=== PATIENT | female | born 1950 | race Caucasian/White ===

== ENCOUNTER 2017-10-11 18:57 | Emergency (ER) | payer MEDICARE, OTHER ==
[2017-10-11] MEDS: CYCLOBENZAPRINE 10 MG TABLET. PO (20:45)
== END 2017-10-11 20:59 | disposition home or self-care (01) ==
LOC: ER 18:57
DX: T42.8X1A Poisoning by antiparkinsonism drugs and other central muscle-tone depressants, accidental (unintentional), initial encounter (principal); T42.6X1A Poisoning by other antiepileptic and sedative-hypnotic drugs, accidental (unintentional), initial encounter; T48.1X1A Poisoning by skeletal muscle relaxants [neuromuscular blocking agents], accidental (unintentional), initial encounter; K21.9 Gastro-esophageal reflux disease without esophagitis; R40.0 Somnolence; Z88.2 Allergy status to sulfonamides; Z88.5 Allergy status to narcotic agent; Y92.89 Other specified places as the place of occurrence of the external cause
CPT/HCPCS: 93005; 99284

== ENCOUNTER 2018-02-04 23:26 | Inpatient (IN) | payer MEDICARE, OTHER ==
[2018-02-05 01:28] LABS: ADD MAN DIFF? NO
[2018-02-05 01:30] LABS: BASO % 1 % (0-3); EOS # 0.4 x10^3/uL (0.0-0.7); EOS % 5 % (0-3); HEMATOCRIT 29.8 % (36.0-47.0); HEMOGLOBIN 9.7 g/dL (12.0-15.5); LYMPH # 0.8 x10^3/uL (1.0-4.8); LYMPH % 10 % (24-48); MEAN CORPUSCULAR HEMOGLOBIN 34 pg (25-35); MEAN CORPUSCULAR HGB CONC 33 g/dL (31-37); MEAN CORPUSCULAR VOLUME 104 fL (79-100); MONO % 13 % (0-9); NEUT # 5.7 x10^3uL (1.8-7.7); NEUT % 72 % (31-73); PLATELET COUNT 168 x10^3/uL (140-400); RED BLOOD COUNT 2.87 x10^6/uL (3.50-5.40); RED CELL DISTRIBUTION WIDTH 18.2 % (11.5-14.5); WHITE BLOOD COUNT 7.9 x10^3/uL (4.0-11.0)
[2018-02-05 01:40] LABS: ANION GAP 21 (6-14); BLOOD UREA NITROGEN 103 mg/dL (7-20); CALCIUM 7.5 mg/dL (8.5-10.1); CARBON DIOXIDE 18 mmol/L (21-32); CHLORIDE 99 mmol/L (98-107); CREATININE 8.2 mg/dL (0.6-1.0); GFR 4.9; GLUCOSE 239 mg/dL (70-99); POTASSIUM 5.2 mmol/L (3.5-5.1); SODIUM 138 mmol/L (136-145)
[2018-02-05 01:41] LABS: MAGNESIUM 2.7 mg/dL (1.8-2.4)
[2018-02-05 03:15] LABS: FECAL OB PT POSITIVE (NEG); NEG OBC FOB NEG; POS OBC FOB POS
[2018-02-05 03:38] LABS: PARTIAL THROMBOPLASTIN TIME 98 SEC (24-38); PROTHROMBIN TIME PATIENT 80.5 SEC (11.7-14.0)
[2018-02-05 03:42] LABS: INR 10.2 (0.8-1.1)
[2018-02-05] MEDS ORDERED: ACETAMINOPHEN 325 MG TABLET. PO (04:00)
[2018-02-05] MEDS ORDERED: ONDANSETRON PF 4 MG/2 ML VIAL. IV (04:00)
[2018-02-05] MEDS: PHYTONADIONE 10 MG/ML ORAL SOLUTION. PO (04:20)
[2018-02-05] MEDS: VANCOMYCIN 125 MG/2.5 ML ORAL SOLUTION. PO ×3 (14:17→21:00)
[2018-02-05] MEDS: PHYTONADIONE 10 MG/ML AMPUL. SQ (14:18)
[2018-02-05] MEDS ORDERED: HYDROcodone/APAP 10/325 1 TAB TABLET PO (15:15)
[2018-02-05] MEDS: CINACALCET HCL 30 MG TABLET PO (15:39)
[2018-02-05] MEDS: GABAPENTIN 100 MG CAPSULE. PO (15:39)
[2018-02-05] MEDS: SERTRALINE 50 MG TABLET. PO (15:39)
[2018-02-05] MEDS: MAG HYDROX/ALUMINUM HYD/SIMETH 30 ML ORAL.SUSP PO (16:14)
[2018-02-05] MEDS: PANTOPRAZOLE 40 MG TABLET.DR. PO (16:14)
[2018-02-05] MEDS: MIDODRINE 5 MG TABLET PO (17:05)
[2018-02-05] MEDS: CLOTRIMAZOLE 1% TOPICAL CREAM 15GM TUBE. TP (21:00)
[2018-02-06] MEDS: GABAPENTIN 100 MG CAPSULE. PO ×4 (01:33→21:02)
[2018-02-06] MEDS: ALPRAZolam 0.5 MG TABLET PO (01:33)
[2018-02-06] MEDS: rOPINIRole 1 MG TABLET. PO ×2 (01:33→21:02)
[2018-02-06] MEDS: MIDODRINE 5 MG TABLET PO ×3 (05:47→17:10)
[2018-02-06 06:06] LABS: ADD MAN DIFF? NO
[2018-02-06 06:12] LABS: BASO % 1 % (0-3); EOS # 0.1 x10^3/uL (0.0-0.7); EOS % 2 % (0-3); HEMATOCRIT 25.9 % (36.0-47.0); HEMOGLOBIN 8.6 g/dL (12.0-15.5); LYMPH # 0.7 x10^3/uL (1.0-4.8); LYMPH % 12 % (24-48); MEAN CORPUSCULAR HEMOGLOBIN 34 pg (25-35); MEAN CORPUSCULAR HGB CONC 33 g/dL (31-37); MEAN CORPUSCULAR VOLUME 103 fL (79-100); MONO # 0.8 x10^3/uL (0.0-1.1); MONO % 14 % (0-9); NEUT # 3.9 x10^3uL (1.8-7.7); NEUT % 70 % (31-73); PLATELET COUNT 138 x10^3/uL (140-400); RED BLOOD COUNT 2.51 x10^6/uL (3.50-5.40); RED CELL DISTRIBUTION WIDTH 17.1 % (11.5-14.5); WHITE BLOOD COUNT 5.5 x10^3/uL (4.0-11.0)
[2018-02-06 06:41] LABS: TROPONINI 0.127 ng/mL (0.000-0.055)
[2018-02-06 06:41] LABS: ALBUMIN 2.6 g/dL (3.4-5.0); ALBUMIN/GLOBULIN RATIO 0.8 (1.0-1.7); ALK PHOS 142 U/L (46-116); ALT (SGPT) 23 U/L (14-59); ANION GAP 22 (6-14); AST (SGOT) 23 U/L (15-37); BLOOD UREA NITROGEN 54 mg/dL (7-20); BUN/CREATININE RATIO 11 (6-20); CALCIUM 7.2 mg/dL (8.5-10.1); CARBON DIOXIDE 25 mmol/L (21-32); CHLORIDE 97 mmol/L (98-107); CREATININE 4.9 mg/dL (0.6-1.0); GFR 8.9; GLUCOSE 136 mg/dL (70-99); POTASSIUM 4.3 mmol/L (3.5-5.1); SODIUM 144 mmol/L (136-145); TOTAL BILIRUBIN 0.5 mg/dL (0.2-1.0); TOTAL PROTEIN 5.7 g/dL (6.4-8.2)
[2018-02-06 07:10] LABS: INR 1.2 (0.8-1.1); PROTHROMBIN TIME PATIENT 15.1 SEC (11.7-14.0)
[2018-02-06] MEDS: PANTOPRAZOLE 40 MG TABLET.DR. PO (07:24)
[2018-02-06] MEDS: CINACALCET HCL 30 MG TABLET PO (08:27)
[2018-02-06] MEDS: VANCOMYCIN 125 MG/2.5 ML ORAL SOLUTION. PO ×4 (08:27→21:02)
[2018-02-06] MEDS: SERTRALINE 50 MG TABLET. PO (08:27)
[2018-02-06] MEDS: CLOTRIMAZOLE 1% TOPICAL CREAM 15GM TUBE. TP ×2 (08:28→21:02)
[2018-02-06] MEDS: HEPARIN 25,000UTS/500ML PREMIX 500 ML IV (10:52)
[2018-02-06] MEDS ORDERED: ONDANSETRON PF 4 MG/2 ML VIAL. IV (13:15)
[2018-02-06] MEDS ORDERED: hydrALAZINE 20 MG/ML VIAL. IVP (13:15)
[2018-02-06] MEDS ORDERED: DOCUSATE SODIUM 100 MG CAPSULE. PO (13:15)
[2018-02-06 17:46] LABS: UNFRACTIONATED HEPARIN TESTING < 0.10 IU/mL (0.30-0.70)
[2018-02-06] MEDS: HEPARIN for IV BOLUS 10,000 UNIT/10 ML VIAL. IV (17:54)
[2018-02-06 19:30] LABS: HEMOGLOBIN 8.9 g/dL (12.0-15.5)
[2018-02-06 19:30] LABS: HEMATOCRIT 27.2 % (36.0-47.0)
[2018-02-06] MEDS: LACTOBACILLUS RHAMNOSUS GG 1 CAPSULE. PO (21:02)
[2018-02-06] MEDS: MAG HYDROX/ALUMINUM HYD/SIMETH 30 ML ORAL.SUSP PO (21:12)
[2018-02-07 01:34] LABS: UNFRACTIONATED HEPARIN TESTING 0.14 IU/mL (0.30-0.70)
[2018-02-07] MEDS: HEPARIN for IV BOLUS 10,000 UNIT/10 ML VIAL. IV ×2 (02:37→08:38)
[2018-02-07 08:00] LABS: ADD MAN DIFF? NO
[2018-02-07 08:11] LABS: BASO # 0.1 x10^3/uL (0.0-0.2); BASO % 1 % (0-3); EOS # 0.2 x10^3/uL (0.0-0.7); EOS % 4 % (0-3); HEMATOCRIT 26.3 % (36.0-47.0); HEMOGLOBIN 8.4 g/dL (12.0-15.5); LYMPH % 18 % (24-48); MEAN CORPUSCULAR HEMOGLOBIN 33 pg (25-35); MEAN CORPUSCULAR HGB CONC 32 g/dL (31-37); MEAN CORPUSCULAR VOLUME 103 fL (79-100); MONO # 0.7 x10^3/uL (0.0-1.1); MONO % 12 % (0-9); NEUT # 3.5 x10^3uL (1.8-7.7); NEUT % 64 % (31-73); PLATELET COUNT 144 x10^3/uL (140-400); RED BLOOD COUNT 2.55 x10^6/uL (3.50-5.40); RED CELL DISTRIBUTION WIDTH 16.9 % (11.5-14.5); WHITE BLOOD COUNT 5.4 x10^3/uL (4.0-11.0)
[2018-02-07 08:24] LABS: INR 1.2 (0.8-1.1)
[2018-02-07 08:25] LABS: UNFRACTIONATED HEPARIN TESTING 0.17 IU/mL (0.30-0.70)
[2018-02-07 08:29] LABS: ANION GAP 12 (6-14); BLOOD UREA NITROGEN 67 mg/dL (7-20); CALCIUM 7.7 mg/dL (8.5-10.1); CARBON DIOXIDE 24 mmol/L (21-32); CHLORIDE 100 mmol/L (98-107); CREATININE 6.8 mg/dL (0.6-1.0); GFR 6.1; GLUCOSE 127 mg/dL (70-99); POTASSIUM 4.7 mmol/L (3.5-5.1); SODIUM 136 mmol/L (136-145)
[2018-02-07] MEDS: CINACALCET HCL 30 MG TABLET PO (08:34)
[2018-02-07] MEDS: PANTOPRAZOLE 40 MG TABLET.DR. PO (08:34)
[2018-02-07] MEDS: LACTOBACILLUS RHAMNOSUS GG 1 CAPSULE. PO (08:35)
[2018-02-07] MEDS: GABAPENTIN 100 MG CAPSULE. PO ×3 (08:35→23:41)
[2018-02-07] MEDS: SERTRALINE 50 MG TABLET. PO (08:35)
[2018-02-07] MEDS: MIDODRINE 5 MG TABLET PO ×3 (08:35→18:02)
[2018-02-07] MEDS: VANCOMYCIN 125 MG/2.5 ML ORAL SOLUTION. PO (08:36)
[2018-02-07] MEDS: CLOTRIMAZOLE 1% TOPICAL CREAM 15GM TUBE. TP ×2 (09:00→21:00)
[2018-02-07 10:21] LABS: C DIFF BY PCR Negative (Negative)
[2018-02-07] MEDS: HEPARIN 25,000UTS/500ML PREMIX 500 ML IV (11:29)
[2018-02-07] MEDS: ANTI-COAG MONITOR BY PHARMACY. MC (14:13)
[2018-02-07 15:18] LABS: UNFRACTIONATED HEPARIN TESTING 0.29 IU/mL (0.30-0.70)
[2018-02-07] MEDS ORDERED: IV NORMAL SALINE 1000ML BAG 1,000 ML IV (16:45)
[2018-02-07] MEDS ORDERED: DIALYSIS PATIENT. MC (16:45)
[2018-02-07] MEDS: LOPERAMIDE 2 MG CAPSULE PO (18:12)
[2018-02-07 21:54] LABS: UNFRACTIONATED HEPARIN TESTING 0.39 IU/mL (0.30-0.70)
[2018-02-07] MEDS: rOPINIRole 1 MG TABLET. PO (23:40)
[2018-02-07] MEDS: ALPRAZolam 0.5 MG TABLET PO (23:41)
[2018-02-08] MEDS: HEPARIN 25,000UTS/500ML PREMIX 500 ML IV ×3 (03:45→17:34)
[2018-02-08 04:18] LABS: ADD MAN DIFF? NO
[2018-02-08 04:26] LABS: BASO # 0.1 x10^3/uL (0.0-0.2); BASO % 1 % (0-3); EOS # 0.2 x10^3/uL (0.0-0.7); EOS % 3 % (0-3); HEMATOCRIT 24.6 % (36.0-47.0); LYMPH # 0.9 x10^3/uL (1.0-4.8); LYMPH % 19 % (24-48); MEAN CORPUSCULAR HEMOGLOBIN 33 pg (25-35); MEAN CORPUSCULAR HGB CONC 33 g/dL (31-37); MEAN CORPUSCULAR VOLUME 102 fL (79-100); MONO # 0.5 x10^3/uL (0.0-1.1); MONO % 12 % (0-9); NEUT # 3.1 x10^3uL (1.8-7.7); NEUT % 65 % (31-73); PLATELET COUNT 153 x10^3/uL (140-400); RED BLOOD COUNT 2.41 x10^6/uL (3.50-5.40); RED CELL DISTRIBUTION WIDTH 16.7 % (11.5-14.5); WHITE BLOOD COUNT 4.7 x10^3/uL (4.0-11.0)
[2018-02-08 04:39] LABS: INR 1.2 (0.8-1.1); PROTHROMBIN TIME PATIENT 14.4 SEC (11.7-14.0)
[2018-02-08 04:42] LABS: UNFRACTIONATED HEPARIN TESTING 0.28 IU/mL (0.30-0.70)
[2018-02-08] MEDS: PANTOPRAZOLE 40 MG TABLET.DR. PO (06:31)
[2018-02-08] MEDS: MIDODRINE 5 MG TABLET PO ×3 (06:35→17:29)
[2018-02-08] MEDS: SERTRALINE 50 MG TABLET. PO (08:41)
[2018-02-08] MEDS: CINACALCET HCL 30 MG TABLET PO (08:42)
[2018-02-08] MEDS: GABAPENTIN 100 MG CAPSULE. PO ×3 (08:42→23:49)
[2018-02-08] MEDS: CLOTRIMAZOLE 1% TOPICAL CREAM 15GM TUBE. TP ×2 (09:00→21:00)
[2018-02-08 12:01] LABS: UNFRACTIONATED HEPARIN TESTING 0.39 IU/mL (0.30-0.70)
[2018-02-08] MEDS: ANTI-COAG MONITOR BY PHARMACY. MC (13:48)
[2018-02-08] MEDS: WARFARIN 3 MG TABLET. PO (17:29)
[2018-02-08] MEDS: LOPERAMIDE 2 MG CAPSULE PO (17:32)
[2018-02-08 18:19] LABS: UNFRACTIONATED HEPARIN TESTING 0.34 IU/mL (0.30-0.70)
[2018-02-08] MEDS: rOPINIRole 1 MG TABLET. PO (23:50)
[2018-02-09] MEDS: ACETAMINOPHEN 325 MG TABLET. PO (05:44)
[2018-02-09 05:54] LABS: HEMATOCRIT 23.8 % (36.0-47.0); HEMOGLOBIN 7.9 g/dL (12.0-15.5); MEAN CORPUSCULAR HEMOGLOBIN 33 pg (25-35); MEAN CORPUSCULAR HGB CONC 33 g/dL (31-37); MEAN CORPUSCULAR VOLUME 101 fL (79-100); PLATELET COUNT 158 x10^3/uL (140-400); RED BLOOD COUNT 2.36 x10^6/uL (3.50-5.40); RED CELL DISTRIBUTION WIDTH 16.5 % (11.5-14.5); WHITE BLOOD COUNT 5.2 x10^3/uL (4.0-11.0)
[2018-02-09 06:04] LABS: INR 1.1 (0.8-1.1); PROTHROMBIN TIME PATIENT 13.2 SEC (11.7-14.0)
[2018-02-09 06:05] LABS: UNFRACTIONATED HEPARIN TESTING 0.27 IU/mL (0.30-0.70)
[2018-02-09] MEDS ORDERED: IV NORMAL SALINE 1000ML BAG 1,000 ML IV ×2 (07:26)
[2018-02-09] MEDS ORDERED: ALBUMIN HUMAN 25% 200 ML IV (07:30)
[2018-02-09] MEDS ORDERED: DIALYSIS PATIENT. MC ×2 (07:30)
[2018-02-09] MEDS: MIDODRINE 5 MG TABLET PO ×3 (07:34→18:49)
[2018-02-09] MEDS: HEPARIN 25,000UTS/500ML PREMIX 500 ML IV (09:50)
[2018-02-09 10:55] LABS: MRSA BY PCR Negative (Negative)
[2018-02-09 14:14] LABS: HEMATOCRIT 23.9 % (36.0-47.0); HEMOGLOBIN 7.4 g/dL (12.0-15.5); MEAN CORPUSCULAR HGB CONC 31 g/dL (31-37)
[2018-02-09 14:30] LABS: UNFRACTIONATED HEPARIN TESTING > 1.10 IU/mL (0.30-0.70)
[2018-02-09] MEDS: CINACALCET HCL 30 MG TABLET PO (17:15)
[2018-02-09] MEDS: SERTRALINE 50 MG TABLET. PO (17:15)
[2018-02-09] MEDS: GABAPENTIN 100 MG CAPSULE. PO ×2 (17:15→17:18)
[2018-02-09] MEDS: WARFARIN 4 MG TABLET. PO (17:15)
[2018-02-09] MEDS: PANTOPRAZOLE 40 MG TABLET.DR. PO (17:15)
[2018-02-09] MEDS: CLOTRIMAZOLE 1% TOPICAL CREAM 15GM TUBE. TP (17:16)
[2018-02-09] MEDS: MAG HYDROX/ALUMINUM HYD/SIMETH 30 ML ORAL.SUSP PO (17:20)
[2018-02-09 22:21] LABS: UNFRACTIONATED HEPARIN TESTING 0.38 IU/mL (0.30-0.70)
[2018-02-10] MEDS: rOPINIRole 1 MG TABLET. PO (00:11)
[2018-02-10] MEDS: ALPRAZolam 0.5 MG TABLET PO (00:11)
[2018-02-10] MEDS: GABAPENTIN 100 MG CAPSULE. PO ×3 (00:14→13:18)
[2018-02-10] MEDS: CLOTRIMAZOLE 1% TOPICAL CREAM 15GM TUBE. TP ×3 (00:15→21:00)
[2018-02-10] MEDS: HEPARIN 25,000UTS/500ML PREMIX 500 ML IV ×2 (03:16→16:55)
[2018-02-10 06:20] LABS: INR 1.2 (0.8-1.1); PROTHROMBIN TIME PATIENT 15.1 SEC (11.7-14.0)
[2018-02-10 06:22] LABS: UNFRACTIONATED HEPARIN TESTING 0.22 IU/mL (0.30-0.70)
[2018-02-10] MEDS: MIDODRINE 5 MG TABLET PO ×3 (06:39→17:48)
[2018-02-10] MEDS: PANTOPRAZOLE 40 MG TABLET.DR. PO (07:46)
[2018-02-10] MEDS: CINACALCET HCL 30 MG TABLET PO (08:28)
[2018-02-10] MEDS: SERTRALINE 50 MG TABLET. PO (08:28)
[2018-02-10] MEDS: COLESTIPOL HCL 1 GM TABLET PO (12:03)
[2018-02-10 13:16] LABS: UNFRACTIONATED HEPARIN TESTING 0.66 IU/mL (0.30-0.70)
[2018-02-10] MEDS: WARFARIN 5 MG TABLET. PO (15:58)
[2018-02-10 21:04] LABS: UNFRACTIONATED HEPARIN TESTING 0.28 IU/mL (0.30-0.70)
[2018-02-11] MEDS: COLESTIPOL HCL 1 GM TABLET PO ×2 (00:22→11:09)
[2018-02-11] MEDS: GABAPENTIN 100 MG CAPSULE. PO ×3 (00:22→16:09)
[2018-02-11] MEDS: ALPRAZolam 0.5 MG TABLET PO (00:22)
[2018-02-11] MEDS: rOPINIRole 1 MG TABLET. PO (00:23)
[2018-02-11 05:32] LABS: UNFRACTIONATED HEPARIN TESTING 0.51 IU/mL (0.30-0.70)
[2018-02-11] MEDS: MIDODRINE 5 MG TABLET PO ×3 (06:08→17:25)
[2018-02-11] MEDS ORDERED: IV NORMAL SALINE 1000ML BAG 1,000 ML IV ×2 (07:25)
[2018-02-11] MEDS ORDERED: DIALYSIS PATIENT. MC ×2 (07:30)
[2018-02-11] MEDS: HEPARIN 25,000UTS/500ML PREMIX 500 ML IV ×2 (08:40→23:23)
[2018-02-11] MEDS: CLOTRIMAZOLE 1% TOPICAL CREAM 15GM TUBE. TP ×2 (09:00→21:00)
[2018-02-11 10:19] LABS: INR 1.8 (0.8-1.1); PROTHROMBIN TIME PATIENT 19.8 SEC (11.7-14.0)
[2018-02-11 10:37] LABS: UNFRACTIONATED HEPARIN TESTING 0.52 IU/mL (0.30-0.70)
[2018-02-11] MEDS: PANTOPRAZOLE 40 MG TABLET.DR. PO (11:08)
[2018-02-11] MEDS: CINACALCET HCL 30 MG TABLET PO (11:09)
[2018-02-11] MEDS: SERTRALINE 50 MG TABLET. PO (11:14)
[2018-02-11] MEDS: ANTI-COAG MONITOR BY PHARMACY. MC (12:49)
[2018-02-11] MEDS: WARFARIN 4 MG TABLET. PO (16:09)
[2018-02-11 17:18] LABS: UNFRACTIONATED HEPARIN TESTING 0.49 IU/mL (0.30-0.70)
[2018-02-11] MEDS: DARBEPOETIN ALFA 60 MCG/0.3 ML DISP.SYRIN. SQ (21:00)
[2018-02-12] MEDS: COLESTIPOL HCL 1 GM TABLET PO ×3 (00:41→20:48)
[2018-02-12] MEDS: ALPRAZolam 0.5 MG TABLET PO (00:41)
[2018-02-12] MEDS: rOPINIRole 1 MG TABLET. PO (00:41)
[2018-02-12] MEDS: MAG HYDROX/ALUMINUM HYD/SIMETH 30 ML ORAL.SUSP PO (00:43)
[2018-02-12] MEDS: GABAPENTIN 100 MG CAPSULE. PO ×3 (00:43→13:37)
[2018-02-12 05:24] LABS: UNFRACTIONATED HEPARIN TESTING 0.78 IU/mL (0.30-0.70)
[2018-02-12 06:23] LABS: INR 2.2 (0.8-1.1); PROTHROMBIN TIME PATIENT 23.3 SEC (11.7-14.0)
[2018-02-12] MEDS: MIDODRINE 5 MG TABLET PO ×3 (06:31→17:40)
[2018-02-12] MEDS: SERTRALINE 50 MG TABLET. PO (08:29)
[2018-02-12] MEDS: PANTOPRAZOLE 40 MG TABLET.DR. PO (08:29)
[2018-02-12] MEDS: CINACALCET HCL 30 MG TABLET PO (08:30)
[2018-02-12] MEDS: CLOTRIMAZOLE 1% TOPICAL CREAM 15GM TUBE. TP ×2 (09:00→20:46)
[2018-02-12] MEDS: LOPERAMIDE 2 MG CAPSULE PO ×2 (11:50→13:37)
[2018-02-12 14:24] LABS: UNFRACTIONATED HEPARIN TESTING 0.28 IU/mL (0.30-0.70)
[2018-02-12] MEDS: HEPARIN 25,000UTS/500ML PREMIX 500 ML IV ×2 (14:38→15:15)
[2018-02-12] MEDS: WARFARIN 3 MG TABLET. PO (16:21)
[2018-02-12 23:51] LABS: UNFRACTIONATED HEPARIN TESTING < 0.10 IU/mL (0.30-0.70)
[2018-02-13] MEDS: HEPARIN for IV BOLUS 10,000 UNIT/10 ML VIAL. IV (00:21)
[2018-02-13] MEDS: rOPINIRole 1 MG TABLET. PO ×2 (01:06→23:11)
[2018-02-13] MEDS: GABAPENTIN 100 MG CAPSULE. PO ×4 (01:07→23:11)
[2018-02-13] MEDS: MIDODRINE 5 MG TABLET PO ×3 (06:33→17:51)
[2018-02-13 07:23] LABS: UNFRACTIONATED HEPARIN TESTING 0.49 IU/mL (0.30-0.70)
[2018-02-13 08:10] LABS: INR 2.1 (0.8-1.1); PROTHROMBIN TIME PATIENT 23.2 SEC (11.7-14.0)
[2018-02-13] MEDS: CLOTRIMAZOLE 1% TOPICAL CREAM 15GM TUBE. TP (09:00)
[2018-02-13] MEDS: CINACALCET HCL 30 MG TABLET PO (09:12)
[2018-02-13] MEDS: PANTOPRAZOLE 40 MG TABLET.DR. PO (09:12)
[2018-02-13] MEDS: SERTRALINE 50 MG TABLET. PO (09:12)
[2018-02-13] MEDS: HEPARIN 25,000UTS/500ML PREMIX 500 ML IV ×2 (09:17→23:14)
[2018-02-13] MEDS: COLESTIPOL HCL 1 GM TABLET PO ×2 (11:17→14:25)
[2018-02-13 12:58] LABS: UNFRACTIONATED HEPARIN TESTING 0.53 IU/mL (0.30-0.70)
[2018-02-13] MEDS: WARFARIN 5 MG TABLET. PO (16:56)
[2018-02-13] MEDS: LOPERAMIDE 2 MG CAPSULE PO (19:57)
[2018-02-13] MEDS ORDERED: CLOTRIMAZOLE 1% TOPICAL CREAM 15GM TUBE. TP (20:00)
[2018-02-14 05:12] LABS: PROTHROMBIN TIME PATIENT 30.7 SEC (11.7-14.0)
[2018-02-14 05:13] LABS: UNFRACTIONATED HEPARIN TESTING 0.59 IU/mL (0.30-0.70)
[2018-02-14] MEDS: MIDODRINE 5 MG TABLET PO ×2 (06:32→14:32)
[2018-02-14] MEDS ORDERED: IV NORMAL SALINE 1000ML BAG 1,000 ML IV ×2 (07:37)
[2018-02-14] MEDS ORDERED: DIALYSIS PATIENT. MC ×2 (07:45)
[2018-02-14] MEDS ORDERED: ALBUMIN HUMAN 25% 200 ML IV (07:45)
[2018-02-14] MEDS: GABAPENTIN 100 MG CAPSULE. PO ×2 (09:00→14:33)
[2018-02-14] MEDS: PANTOPRAZOLE 40 MG TABLET.DR. PO (14:32)
[2018-02-14] MEDS: SERTRALINE 50 MG TABLET. PO (14:32)
[2018-02-14] MEDS: CINACALCET HCL 30 MG TABLET PO (14:33)
[2018-02-14] MEDS: LOPERAMIDE 2 MG CAPSULE PO (14:33)
[2018-02-14] MEDS: COLESTIPOL HCL 1 GM TABLET PO (14:33)
[2018-02-14] MEDS: WARFARIN 4 MG TABLET. PO (14:54)
== END 2018-02-14 15:25 | DRG 813 ==
LOC: ER 23:26 → 5 SOUTH 02-05 02:50
PROC: 5A1D70Z Performance of Urinary Filtration, Intermittent, Less than 6 Hours Per Day (ICD-10-PCS; principal; 2018-02-07)
PROC: 5A1D70Z Performance of Urinary Filtration, Intermittent, Less than 6 Hours Per Day (ICD-10-PCS; 2018-02-09)
PROC: 5A1D70Z Performance of Urinary Filtration, Intermittent, Less than 6 Hours Per Day (ICD-10-PCS; 2018-02-11)
PROC: 5A1D70Z Performance of Urinary Filtration, Intermittent, Less than 6 Hours Per Day (ICD-10-PCS; 2018-02-14)
DX: D68.32 Hemorrhagic disorder due to extrinsic circulating anticoagulants (principal); N18.6 End stage renal disease; K92.2 Gastrointestinal hemorrhage, unspecified; I12.0 Hypertensive chronic kidney disease with stage 5 chronic kidney disease or end stage renal disease; K29.70 Gastritis, unspecified, without bleeding; D64.9 Anemia, unspecified; Z86.73 Personal history of transient ischemic attack (TIA), and cerebral infarction without residual deficits; K21.9 Gastro-esophageal reflux disease without esophagitis; I25.10 Atherosclerotic heart disease of native coronary artery without angina pectoris; E11.21 Type 2 diabetes mellitus with diabetic nephropathy; E11.22 Type 2 diabetes mellitus with diabetic chronic kidney disease; I95.9 Hypotension, unspecified; F41.9 Anxiety disorder, unspecified; G25.81 Restless legs syndrome; Z98.84 Bariatric surgery status; E07.9 Disorder of thyroid, unspecified; Z88.5 Allergy status to narcotic agent; Z88.2 Allergy status to sulfonamides; Z95.1 Presence of aortocoronary bypass graft; Z82.49 Family history of ischemic heart disease and other diseases of the circulatory system; E78.5 Hyperlipidemia, unspecified; Z99.2 Dependence on renal dialysis; Z79.01 Long term (current) use of anticoagulants; T45.515A Adverse effect of anticoagulants, initial encounter; K57.90 Diverticulosis of intestine, part unspecified, without perforation or abscess without bleeding; Z78.9 Other specified health status; Z95.2 Presence of prosthetic heart valve; Y92.89 Other specified places as the place of occurrence of the external cause
CPT/HCPCS: 36415; 80048; 80053; 82274; 83735; 84484; 85014; 85018; 85025; 85027; 85520; 85610; 85730; 87324; 87641; 93005; 93306; 97110-GP; 97116-GP; 97161-GP; 97165-GO; 97530-GO; 97530-GP; 97535-GO; 99285; 99285-25; J1644; J3430

== ENCOUNTER 2018-07-24 02:33 | Emergency (ER) | payer MEDICARE, OTHER ==
[~2018-07-24] VITALS: Ht 170.2 cm; Wt 59.9 kg
[~2018-07-24 02:33] MED LIST: CALC300T5 PO; CINA30TA2 PO; CLOT15CR4 TP; CYCL10TA2 PO; DIPH1TAB PO; DIPH25CA58 PO; EPOE20006 IJ; ESTR10TA VG; FERR210T PO; GABA-585 PO; HYDR-2769 PO; LORA10TA3 PO; MECL25TA3 PO; MIDO10TA PO; OMEP40CA5 PO; PANT20TA2 PO; ROPI1TAB PO; SERT50TA PO; WARF3TAB50 PO; [UNRECOGNIZED DRUG - OTHER]; auryxia PO; vancomycin
[2018-07-24 02:40] VITALS: BP 160/70
--- NOTE | 2018-07-24 02:59 | PHYS DOC ---
Past Medical History Past Medical History: Anxiety, CAD, CVA, Diabetes-Type II, GERD, Hypotension, Renal Failure Additional Past Medical Histor: "thyroid disorder"restless leg syndrome Past Surgical History: Other (mechanical heart valve) Additional Past Surgical Histo: open heart, av shunts blat arms,blood clot removal,francisco.bypass, Alcohol Use: None Drug Use: None Adult General Chief Complaint Chief Complaint: LOWER EXT PAIN HPI HPI Patient is a 67 year old female who presents with right knee pain that is been present intermittently for the past 2 weeks. He much worse last night. Her usual home hydrocodone pain medicine did not relieve the pain. Increased pain with movement. She reports falling at some time in the past 2 weeks. No other trauma. No hip pain, no ankle pain. No numbness or tingling. No swelling. Patient is currently on Coumadin for mechanical heart valve. Patient reports that the pain feel like it is piercing across the knee. No redness.[] Review of Systems Review of Systems Constitutional: Denies fever or chills [] Eyes: Denies change in visual acuity, redness, or eye pain [] HENT: Denies nasal congestion or sore throat [] Respiratory: Denies cough or shortness of breath [] Cardiovascular: Chest pain or palpitations[] GI: Denies abdominal pain, nausea, vomiting, bloody stools or diarrhea [] : Denies dysuria or hematuria [] Musculoskeletal: See history of present illness[] Integument: Denies rash or skin lesions [] Neurologic: Denies headache, focal weakness or sensory changes [] Endocrine: Denies polyuria or polydipsia [] All other systems were reviewed and found to be within normal limits, except as documented in this note. Current Medications Current Medications Current Medications Medications (Trade) Dose Ordered Sig/Dustin Start Time Stop Time Status Last Admin Dose Admin Oxycodone/ Acetaminophen (Percocet 5/325) 1 tab STK-MED ONCE 07/24/18 03:00 07/24/18 03:02 DC Allergies Allergies Allergies Coded Allergies Type Severity Reaction Last Updated Verified morphine Allergy Intermediate hives 02/05/18 Yes Sulfa (Sulfonamide Antibiotics) Allergy Mild nausea 02/05/18 Yes Physical Exam Physical Exam Constitutional: Well developed, well nourished, I'll discomfort, non-toxic appearance. [] HENT: Normocephalic, atraumatic, bilateral external ears normal, oropharynx moist, no oral exudates, nose normal. [] Eyes: PERRLA, EOMI, conjunctiva normal, no discharge. [] Neck: Normal range of motion, no tenderness, supple, no stridor. [] Cardiovascular:Heart rate regular rhythm, metallic click[] Lungs & Thorax: Bilateral breath sounds clear to auscultation [] Abdomen: Bowel sounds normal, soft, no tenderness, no masses, no pulsatile masses. [] Skin: Warm, dry, no erythema, no rash. [] Back: No tenderness, no CVA tenderness. [] Extremities: Right knee has tenderness to palpation diffusely around the knee. No varus or valgus laxity, negative drawer test, negative Ysabel test, limited active range of motion of the right knee secondary to pain. There is no joint line tenderness. No edema. The hip and the ankle were both evaluated and were both normal. There is no leg swelling on the right side. [] Neurologic: Alert and oriented X 3, normal motor function, normal sensory function, no focal deficits noted. [] Psychologic: Affect normal, judgement normal, mood normal. [] Current Patient Data Vital Signs Vital Signs Date Time Temp Pulse Resp B/P (MAP) Pulse Ox O2 Delivery O2 Flow Rate FiO2 07/24/18 02:40 98.3 88 16 160/70 (100) 98 Room Air 98.3 EKG EKG [] Radiology/Procedures Radiology/Procedures Right knee 3 views. HISTORY: Pain after a fall 3 views were taken of the right knee. There is moderate osteoarthritis was hypertrophic spurring. There is extensive vascular calcification. There is no fracture or significant joint effusion. IMPRESSION: 1. Arthritis right knee. 2. No facial acute fracture.[] Course & Med Decision Making Course & Med Decision Making Pertinent Labs and Imaging studies reviewed. (See chart for details) ED course: Patient arrived, was placed in bed, and tolerated exam well. Patient was transported to and from -ray with any complications. Patient did receive pain medicine the emergency department. After return the imaging findings, these were discussed with the patient voiced understanding. All questions were answered. Patient was discharged in improved condition. Stefano decision making: There is no evidence of a fracture or dislocation. No evidence of ACL, PCL, nor collateral ligament injury. No evidence of hip or ankle fracture. No evidence of DVT.[] Dragon Disclaimer Dragon Disclaimer This electronic medical record was generated, in whole or in part, using a voice recognition dictation system. Departure Departure Impression: Primary Impression: Knee pain Disposition: HOME, SELF-CARE Condition: GOOD Referrals: ERASMO CAVAZOS (PCP) Follow-up in 2 days Patient Instructions: Knee Pain Additional Instructions: Follow-up with your regular doctor in 2 days. Return to the ER if worsening pain or any other concerns. Scripts Oxycodone/Apap 5-325 (PERCOCET 5-325 MG TABLET ) 1 Each Tablet 1-2 EACH PO PRN TID PRN for SEVERE PAIN, #10 TAB pain Prov: HALEY JOHNSON DO 07/24/18 Problem Qualifiers Primary Impression: Knee pain Chronicity: acute Laterality: right Qualified Codes: M25.561 - Pain in right knee HALEY JOHNSON DO Jul 24, 2018 02:58
[2018-07-24] MEDS ORDERED: oxyCODONE/APAP 5/325 1 TAB TABLET ONE (03:00)
--- NOTE | 2018-07-24 03:21 | RAD ---
Right knee 3 views. HISTORY: Pain after a fall 3 views were taken of the right knee. There is moderate osteoarthritis was hypertrophic spurring. There is extensive vascular calcification. There is no fracture or significant joint effusion. IMPRESSION: 1. Arthritis right knee. 2. No facial acute fracture. Electronically signed by: Andriy Hnanah MD (07/24/2018 3:17 AM) [id number]
[2018-07-24] MEDS ORDERED: OXYC1TAB15 PO (03:30)
[2018-07-24] MEDS ORDERED: oxyCODONE/APAP 5/325 1 TAB TABLET PO ONE (03:30)
== END 2018-07-24 04:04 | disposition home or self-care (01) ==
LOC: ER 02:33
DX: M25.561 Pain in right knee (principal); I25.10 Atherosclerotic heart disease of native coronary artery without angina pectoris; K21.9 Gastro-esophageal reflux disease without esophagitis; E11.9 Type 2 diabetes mellitus without complications; N19 Unspecified kidney failure; Z86.73 Personal history of transient ischemic attack (TIA), and cerebral infarction without residual deficits; Z88.5 Allergy status to narcotic agent; Z88.2 Allergy status to sulfonamides
CPT/HCPCS: 73562; 99283

== ENCOUNTER → 2019-03-12 | Outpatient (CLI) | payer MEDICARE, OTHER ==
[~2019-03-12] MED LIST changes: +OXYC1TAB15 PO
--- NOTE | 2019-03-12 02:13 | RAD ---
CT head without contrast: Reason for examination: Confusion. Altered mental status. Evaluate for encephalopathy. Axial images were obtained through the brain. No contrast was administered. Exposure: One or more of the following individualized dose reduction techniques were utilized for this examination: 1. Automated exposure control 2. Adjustment of the mA and/or kV according to patient size 3. Use of iterative reconstruction technique. Ventricular systems are symmetric and not abnormally dilated. No midline shift is seen. There is no evidence of intracranial hemorrhage, acute infarct, mass or edema. There is a small hypodense lesion in the lateral right basal ganglia region with consistent with a small lacunar infarct. No abnormalities of seen at the orbits. The paranasal sinuses and mastoid air cells are clear. No acute abnormality seen in the skull. IMPRESSION: No acute intracranial abnormality evident. Small hypodensity consistent with a chronic lacunar infarct in the lateral right basal ganglia region. Electronically signed by: Sofie Ruano MD (03/12/2019 2:10 AM) [facility]
== END | disposition home or self-care (01) ==
LOC: CT 01:10
PROVIDERS: ATTEND Family Medicine
DX: R41.0 Disorientation, unspecified (principal)
CPT/HCPCS: 70450